=== PATIENT | female | born 1970 | race Caucasian/White ===

== ENCOUNTER 2017-03-30 18:45 | Emergency (ER) | payer BC, MEDICARE ==
--- NOTE | 2017-03-30 19:13 | EDM.PDOC ---
ED HPI GENERAL MEDICAL PROBLEM - General Chief Complaint: Neuro Symptoms/Deficits Stated Complaint: difficulty talking Time Seen by Provider: 03/30/17 18:50 Source of Information: Reports: Patient, Family History Limitations: Reports: Language Barrier (unable to find words, history obtained by family) - History of Present Illness INITIAL COMMENTS - FREE TEXT/NARRATIVE: Patient had an ischemic stroke last Tuesday with cerebral bypass on Saturday March 25, 2017. She was discharged yesterday, Wednesday March 29, 2017. She had similar symptoms to this. She was last seen well at 1300 when she took a nap. Family noticed her speech being worse at 1600 and presented here at approximately 1845. No complaints of weakness. Elevated systolic BP on initial vital check of 161. Onset: Today, Unknown/Unsure Onset Date: 03/30/17 Onset Time: 16:00 (first discovered by family) Severity: Moderate Improves with: Reports: None Worsens with: Reports: None Associated Symptoms: Reports: No Other Symptoms - Related Data Allergies Allergy/AdvReac Type Severity Reaction Status Date / Time Sulfa (Sulfonamide Allergy Rash Verified 08/31/16 17:36 Antibiotics) tramadol Allergy Other Verified 08/31/16 17:36 Home Meds: Home Meds Amitriptyline [Elavil] 10 mg PO BEDTIME 08/31/16 [History] Citalopram [Celexa] 40 mg PO DAILY 08/31/16 [History] Divalproex Sodium [Divalproex Sodium ER] 1,500 mg PO DAILY 08/31/16 [History] Insulin Aspart [NovoLOG] 0 unit SQ ASDIRECTED 08/31/16 [History] LORazepam 1 mg PO Q6H PRN 08/31/16 [History] Liraglutide [Victoza] 1.8 unit SQ DAILY 08/31/16 [History] Losartan/Hydrochlorothiazide [Losartan-HCTZ 100-25 MG] 1 each PO DAILY 08/31/16 [History] amLODIPine Besylate [Amlodipine Besylate] 5 mg PO DAILY 08/31/16 [History] Divalproex Sodium [Divalproex Sodium ER] 2,000 mg PO BEDTIME 09/01/16 [History] Gemfibrozil [Lopid] 600 mg PO BID 09/01/16 [History] Glucagon,Human Recombinant [Glucagon Emergency Kit] 1 mg IJ ASDIRECTED PRN 09/01 [History] Meloxicam [Mobic] 15 mg PO DAILY 09/01/16 [History] Simvastatin [Zocor] 20 mg PO BEDTIME 09/01/16 [History] levETIRAcetam [Keppra] 1,500 mg PO BID 09/01/16 [History] metFORMIN [Glucophage] 1,000 mg PO BID 09/01/16 [History] Hydrochlorothiazide 25 mg PO DAILY tablet 09/03/16 [Rx] Past Medical History HEENT History: Reports: Allergic Rhinitis Cardiovascular History: Reports: High Cholesterol, Hypertension Respiratory History: Reports: Sleep Apnea [employer]OW[employer] WORKER History: Reports: Musculoskeletal History: Reports: Arthritis, Other (See Below) Other Musculoskeletal History: Both knees and hips Neurological History: Reports: Seizure Psychiatric History: Reports: Anxiety, Depression Endocrine/Metabolic History: Reports: Diabetes, Type II - Past Surgical History Female Surgical History: Reports: Hysterectomy Social & Family History - Tobacco Use Smoking Status *Q: Former Smoker Month Tobacco Last Used: 2009 Second Hand Smoke Exposure: No - Caffeine Use Caffeine Use: Reports: None - Recreational Drug Use Recreational Drug Use: No ED ROS GENERAL - Review of Systems Review Of Systems: See Below Constitutional: Reports: No Symptoms HEENT: Reports: No Symptoms Respiratory: Reports: No Symptoms Cardiovascular: Reports: No Symptoms Endocrine: Reports: No Symptoms GI/Abdominal: Reports: No Symptoms : Reports: No Symptoms Musculoskeletal: Reports: No Symptoms Skin: Reports: No Symptoms Neurological: Reports: Trouble Speaking Psychiatric: Reports: No Symptoms Hematologic/Lymphatic: Reports: No Symptoms Immunologic: Reports: No Symptoms ED EXAM, HEAD INJURY - Physical Exam Exam: See Below Exam Limited By: Physical Impairment General Appearance: Alert, WD/WN, Moderate Distress (patient is crying) Head: Normocephalic, Other (left sided post cerbral bypass site, daphney clean, dry, and intact) Eyes: Bilateral Eye: EOMI, PERRL Nose: Normal Inspection Throat/Mouth: Other (slight right sided droop) Neck: Non-Tender Respiratory: No Respiratory Distress, Lungs Clear, Normal Breath Sounds Cardiovascular: Normal Peripheral Pulses, Regular Rate, Rhythm GI/Abdominal Exam (Abbreviated): Normal Bowel Sounds, Soft, Non-Tender Extremities: No Evidence of Injury, Non-Tender, Pedal Edema, Other (slight right sided weakness) Neurologic: Alert, Oriented x 3, Aphasia, Facial Droop, Motor Weakness. No: No Motor/Sensory Deficits (right sided weakness), Normal Mood/Affect (very emotional and crying) Skin: Normal Color - [place] Coma Score Best Eye Response ([place]): (4) Open Spontaneously Best Verbal Response ([place]): (5) Oriented Best Motor Response ([place]): (6) Obeys Commands Course - Orders/Labs/Meds Orders: Active Orders 24 hr Category Date Time Status Head wo Cont [CT] Stat Exams 03/30/17 19:02 Taken Labs: Laboratory Tests 03/30/17 Range/Units 18:57 POC Glucose 75 (74-106) mg/dL - Re-Assessments/Exams Free Text/Narrative Re-Assessment/Exam: 03/30/17 20:51 Report called to [place] [facility] one call and Dr. Dorantes of neurology. Patient to be transferred to Emergency Dept. with stroke symptoms. Head CT obtained and images pushed to [place] [facility]. No acute processes on read by radiology. Attempted to insert IV and to draw labs, but we were unable to obtain IV access. Departure - Departure Time of Disposition: 19:35 Disposition: DC/Tfer to Acute Hospital 02 Condition: Fair Clinical Impression: Stroke - Discharge Information Referrals: Eulalio Campbell MD [Primary Care Provider] - Forms: Interfacility Transfer EMTALA - My Orders Last 24 Hours: My Active Orders 03/30/17 19:02 Head wo Cont [CT] Stat - Assessment/Plan Last 24 Hours: My Active Orders 03/30/17 19:02 Head wo Cont [CT] Stat
== END 2017-03-30 19:35 | disposition short-term general hospital (02) ==
LOC: VM.ED 18:45
DX: I63.9 Cerebral infarction, unspecified (principal); E78.00 Pure hypercholesterolemia, unspecified; I10 Essential (primary) hypertension; Z88.2 Allergy status to sulfonamides; Z88.8 Allergy status to other drugs, medicaments and biological substances; Z79.4 Long term (current) use of insulin; Z79.899 Other long term (current) drug therapy; Z79.84 Long term (current) use of oral hypoglycemic drugs; Z90.710 Acquired absence of both cervix and uterus
CPT/HCPCS: 70450; 82962; 93005; 99285

== ENCOUNTER 2019-03-10 09:12 | Inpatient (IN) | payer BC, MEDICAID ==
[2019-03-10] MEDS ORDERED: Sodium Chloride 0.9% 1,000 ML IV ONE (10:22)
[2019-03-10 10:33] LABS: CHLORIDE,CL 97 mmol/L (98-107); SODIUM,NA 135 mmol/L (136-145)
--- NOTE | 2019-03-10 10:34 | EDM.PDOC ---
ED HPI GENERAL MEDICAL PROBLEM - General Chief Complaint: Abdominal Pain Time Seen by Provider: 03/10/19 09:13 Source of Information: Reports: Retirement Records History Limitations: Reports: Altered Mental Status - History of Present Illness INITIAL COMMENTS - FREE TEXT/NARRATIVE: Pt. presents to ER via EMS. Pt. has profound speech and R sided paralysis secondary to a stroke several years ago. Staff states that she was complaining of R upper quadrant pain. She complained of it last night. She was crying out in pain today so EMS was summoned. She is a code 3/comfort cares patient. She resides in the [facility]. She was really unable to answer any questions due to her profound aphasia. She has been running a low grad fever. She has been not experiencing any vomiting. She did have a large normal bowel movement this AM. Pt. did receive IV dilaudid due to severe pain prehospitally and offered no complaint on arrival to ER. She stated that she was not having any discomfort. Staff states that she will often say she is not in pain when she is due to her aphasia. Onset: Today Onset Date: 03/10/19 Location: Reports: Abdomen - Related Data Allergies Allergy/AdvReac Type Severity Reaction Status Date / Time Sulfa (Sulfonamide Allergy Rash Verified 03/10/19 09:44 Antibiotics) tramadol Allergy Other Verified 03/10/19 09:44 Home Meds: Home Meds Citalopram [Celexa] 10 mg PO DAILY 08/31/16 [History] amLODIPine Besylate [Amlodipine Besylate] 10 mg PO DAILY 08/31/16 [History] metFORMIN [Glucophage] 1,000 mg PO BID 09/01/16 [History] Aspirin 81 mg PO DAILY 04/18/17 [History] Carvedilol [Coreg] 12.5 mg PO BID 04/18/17 [History] DULoxetine [Cymbalta] 60 mg PO DAILY 04/18/17 [History] atorvaSTATin [Lipitor] 80 mg PO BEDTIME 04/18/17 [History] traZODone 50 mg PO BEDTIME 04/18/17 [History] Famotidine [Pepcid] 20 mg PO DAILY #30 tablet 07/13/17 [Rx] Ibuprofen [Motrin] 400 mg PO Q4H PRN #30 tablet 07/13/17 [Rx] Melatonin 3 mg PO BEDTIME #30 tablet 07/13/17 [Rx] ALPRAZolam [Xanax] 0.5 mg PO DAILY 03/10/19 [History] ALPRAZolam [Xanax] 0.5 mg PO ONETIME PRN 03/10/19 [History] ARIPiprazole [Abilify] 1 tab PO DAILY 03/10/19 [History] Acetaminophen [Tylenol] 650 mg PO BID 03/10/19 [History] Acetaminophen [Tylenol] 650 mg PO Q4H PRN 03/10/19 [History] Baclofen 5 mg PO BID 03/10/19 [History] Bisacodyl [Dulcolax] 1 supp RECTAL DAILY PRN 03/10/19 [History] Bisacodyl [Dulcolax] 1 tab PO DAILY PRN 03/10/19 [History] Carbamide Peroxide [Debrox] 5 - 10 drop EARBOTH BID 03/10/19 [History] Dimethicone [Cavilon Durable Barrier] 1 applic TOP BID 03/10/19 [History] Docusate Sodium [Colace] 100 mg PO BID 03/10/19 [History] Lacosamide [Vimpat] 1 tab PO BID 03/10/19 [History] Levothyroxine Sodium [Levo-T] 1 tab PO DAILY 03/10/19 [History] Nystatin 1 applic TOP BID PRN 03/10/19 [History] Valproic Acid [Depakene] 30 ml PO QAM 03/10/19 [History] Valproic Acid [Depakene] 40 ml PO BEDTIME 03/10/19 [History] guaiFENesin/Codeine Phosphate [Guaiatussin AC] 10 ml PO Q4H PRN 03/10/19 [ History] Past Medical History HEENT History: Reports: Allergic Rhinitis Cardiovascular History: Reports: High Cholesterol, Hypertension Respiratory History: Reports: Sleep Apnea Genitourinary History: Reports: Other (See Below) Other Genitourinary History: CKD, proteinuria [employer] T[employer]ER History: Reports: Musculoskeletal History: Reports: Arthritis, Osteoarthritis, Other (See Below) Other Musculoskeletal History: Both knees and hips Neurological History: Reports: CVA, Neuropathy, Peripheral, Seizure Psychiatric History: Reports: Anxiety, Depression, Other (See Below) Other Psychiatric History: insomnia Endocrine/Metabolic History: Reports: Diabetes, Type II, Obesity/BMI 30+ - Past Surgical History Female Surgical History: Reports: Hysterectomy Neurological Surgical History: Reports: Other (See Below) Other Neurological Surgeries/Procedures: craniotomy Social & Family History - Family History Family Medical History: Noncontributory - Caffeine Use Caffeine Use: Reports: None ED ROS GENERAL - Review of Systems Review Of Systems: Unable To Obtain ED EXAM, GENERAL - Physical Exam Exam: See Below Exam Limited By: No Limitations General Appearance: Alert, Other Eye Exam: Bilateral Eye: EOMI, PERRL Head: Atraumatic, Normocephalic Neck: Normal Inspection, Supple, Non-Tender Respiratory/Chest: No Respiratory Distress, Lungs Clear, Normal Breath Sounds, No Accessory Muscle Use, Chest Non-Tender Cardiovascular: Normal Peripheral Pulses, Regular Rate, Rhythm, No Edema, No Gallop, No JVD, No Murmur Peripheral Pulses: 4+: Radial (R) GI/Abdominal: Soft, No Organomegaly, No Distention, Tender (Female) Exam: Deferred Rectal (Female) Exam: Deferred Back Exam: Normal Inspection, Full Range of Motion Extremities: Normal Inspection, Normal Range of Motion, Non-Tender, No Pedal Edema, Normal Capillary Refill Neurological: Alert, Oriented, CN II-XII Intact, Normal Cognition, Normal Gait, Normal Reflexes, No Motor/Sensory Deficits Psychiatric: Normal Affect, Normal Mood Skin Exam: Warm, Dry, Intact, Normal Color, No Rash Lymphatic: No Adenopathy Course - Vital Signs Last Recorded V/S: Last Vital Signs Temp 37.5 C 03/10/19 09:13 Pulse 91 03/10/19 10:20 Resp 16 03/10/19 10:20 BP 116/64 03/10/19 11:45 Pulse Ox 98 03/10/19 11:45 - Orders/Labs/Meds Orders: Active Orders 24 hr Category Date Time Status Oxygen Therapy, ED [RC] ASDIRECTED Care 03/10/19 12:02 Active CULTURE BLOOD [BC] Stat Lab 03/10/19 09:48 Received CULTURE BLOOD [BC] Stat Lab 03/10/19 09:55 Received Blood Culture x2 Reflex Set [OM.PC] Stat Oth 03/10/19 09:28 Ordered Labs: Laboratory Tests 03/10/19 03/10/19 03/10/19 Range/Units 09:45 09:48 09:48 WBC 17.0 H (4.0-10.0) x10^3/uL RBC 4.04 (4.00-5.50) x10^6/uL Hgb 13.0 D (12.0-16.0) g/dL Hct 38.9 (33.0-47.0) % MCV 96.3 H D (78.0-93.0) fL MCH 32.2 H (26.0-32.0) pg MCHC 33.4 (32.0-36.0) g/dL RDW Coeff of Olaf 14.5 (10.0-15.0) % Plt Count 214 D (130-400) x10^3/uL Neut % (Auto) 69.5 (50.0-80.0) % Lymph % (Auto) 14.8 L (25.0-50.0) % [place] % (Auto) 15.4 H (2.0-11.0) % Eos % (Auto) 0.1 (0.0-4.0) % Baso % (Auto) 0.2 (0.2-1.2) % PT 10.3 (10.0-12.8) SEC INR 0.9 L (2.0-3.5) Sodium (136-145) mmol/L Potassium (3.5-5.1) mmol/L Chloride (98-107) mmol/L Carbon Dioxide (21-32) mmol/L Anion Gap (10-20) mmol/L BUN (7-18) mg/dL Creatinine (0.55-1.02) mg/dL Est Cr Clr Drug Dosing Estimated GFR (MDRD) Glucose (74-106) mg/dL Lactic Acid (0.4-2.0) mmol/L Calcium (8.5-10.1) mg/dL Corrected Calcium (8.5-10.1) mg/dL Phosphorus (2.6-4.7) mg/dL Magnesium (1.8-2.4) mg/dL Total Bilirubin (0.2-1.0) mg/dL AST (15-37) U/L ALT (14-59) U/L Alkaline Phosphatase (46-116) U/L C-Reactive Protein (<=0.9) mg/dL Total Protein (6.4-8.2) g/dL Albumin (3.4-5.0) g/dL Globulin Albumin/Globulin Ratio Amylase (25-115) U/L Lipase (73-393) U/L TSH, Ultra Sensitive (0.358-3.74) uIU/mL Urine Color Dark yellow H (YELLOW) Urine Appearance Turbid H (CLEAR) Urine pH 7.5 (5.0-8.0) Ur Specific [place] 1.015 Urine Protein 30 H (NEGATIVE) mg/dL Urine Glucose (UA) Negative (NEGATIVE) mg/dL Urine Ketones Trace H (NEGATIVE) mg/dL Urine Occult Blood Small H (NEGATIVE) Urine Nitrite Negative (NEGATIVE) Urine Bilirubin Negative (NEGATIVE) Urine Urobilinogen 1.0 (0.2) EU/dL Ur Leukocyte Esterase Large H (NEGATIVE) Urine RBC 10-20 H (NOT SEEN) /HPF Urine WBC Packed (NOT SEEN) /HPF Urine WBC Clumps Few Ur Squamous Epith Cells Few H (NEGATIVE) /HPF Urine Bacteria Many H (NEGATIVE) /HPF Urine Mucus Few H (NEGATIVE) /LPF 03/10/19 03/10/19 Range/Units 09:48 09:48 WBC (4.0-10.0) x10^3/uL RBC (4.00-5.50) x10^6/uL Hgb (12.0-16.0) g/dL Hct (33.0-47.0) % MCV (78.0-93.0) fL MCH (26.0-32.0) pg MCHC (32.0-36.0) g/dL RDW Coeff of [place] (10.0-15.0) % Plt Count (130-400) x10^3/uL Neut % (Auto) (50.0-80.0) % Lymph % (Auto) (25.0-50.0) % [place] % (Auto) (2.0-11.0) % Eos % (Auto) (0.0-4.0) % Baso % (Auto) (0.2-1.2) % PT (10.0-12.8) SEC INR (2.0-3.5) Sodium 135 L (136-145) mmol/L Potassium 4.1 (3.5-5.1) mmol/L Chloride 97 L (98-107) mmol/L Carbon Dioxide 30 (21-32) mmol/L Anion Gap 12.1 (10-20) mmol/L BUN 11 (7-18) mg/dL Creatinine 0.7 (0.55-1.02) mg/dL Est Cr Clr Drug Dosing TNP Estimated GFR (MDRD) > 60 Glucose 213 H (74-106) mg/dL Lactic Acid 2.1 H* (0.4-2.0) mmol/L Calcium 9.0 (8.5-10.1) mg/dL Corrected Calcium 10.12 H (8.5-10.1) mg/dL Phosphorus 3.7 (2.6-4.7) mg/dL Magnesium 1.4 L (1.8-2.4) mg/dL Total Bilirubin 0.4 (0.2-1.0) mg/dL AST 7 L (15-37) U/L ALT 9 L (14-59) U/L Alkaline Phosphatase 77 (46-116) U/L C-Reactive Protein 5.8 H (<=0.9) mg/dL Total Protein 6.7 (6.4-8.2) g/dL Albumin 2.6 L (3.4-5.0) g/dL Globulin 4.1 Albumin/Globulin Ratio 0.63 Amylase 28 (25-115) U/L Lipase 295 (73-393) U/L TSH, Ultra Sensitive 2.893 (0.358-3.74) uIU/mL Urine Color (YELLOW) Urine Appearance (CLEAR) Urine pH (5.0-8.0) Ur Specific [place] Urine Protein (NEGATIVE) mg/dL Urine Glucose (UA) (NEGATIVE) mg/dL Urine Ketones (NEGATIVE) mg/dL Urine Occult Blood (NEGATIVE) Urine Nitrite (NEGATIVE) Urine Bilirubin (NEGATIVE) Urine Urobilinogen (0.2) EU/dL Ur Leukocyte Esterase (NEGATIVE) Urine RBC (NOT SEEN) /HPF Urine WBC (NOT SEEN) /HPF Urine WBC Clumps Ur Squamous Epith Cells (NEGATIVE) /HPF Urine Bacteria (NEGATIVE) /HPF Urine Mucus (NEGATIVE) /LPF Meds: Medications Discontinued Medications Generic Name Dose Route Start Last Admin Trade Name Freq PRN Reason Stop Dose Admin Sodium Chloride 1,000 mls @ 1,000 mls/hr 03/10/19 10:22 03/10/19 10:36 Normal Saline IV 03/10/19 11:21 1,000 mls/hr .BOLUS ONE Administration Piperacillin Sod/Tazobactam 100 mls @ 200 mls/hr 03/10/19 10:41 03/10/19 11: 15 Sod 3.375 gm/ Sodium Chloride IV 03/10/19 11:10 200 mls/hr STAT ONE Administration Iopamidol 100 ml 03/10/19 10:54 03/10/19 11:08 Isovue-300 (61%) IVPUSH 03/10/19 10:55 100 ml ONETIME ONE Administration - Re-Assessments/Exams Free Text/Narrative Re-Assessment/Exam: 03/10/19 12:09 CT abdomen and pelvis obtained. Steatosis of liver noted. Gallbladder distention without evidence of cholecysitis/cholelithiasis. Non-specific fat stranding of RUQ Departure - Departure Time of Disposition: 12:10 Disposition: DC/Tfer to Acute Hospital 02 Clinical Impression: UTI (urinary tract infection) - Discharge Information - Problem List Review Problem List Initiated/Reviewed/Updated: Yes - My Orders Last 24 Hours: My Active Orders 03/10/19 09:28 Blood Culture x2 Reflex Set [OM.PC] Stat 03/10/19 09:48 CULTURE BLOOD [BC] Stat 03/10/19 09:55 CULTURE BLOOD [BC] Stat 03/10/19 12:02 Oxygen Therapy, ED [RC] ASDIRECTED - Assessment/Plan Last 24 Hours: My Active Orders 03/10/19 09:28 Blood Culture x2 Reflex Set [OM.PC] Stat 03/10/19 09:48 CULTURE BLOOD [BC] Stat 03/10/19 09:55 CULTURE BLOOD [BC] Stat 03/10/19 12:02 Oxygen Therapy, ED [RC] ASDIRECTED Plan: Pt. will be admitted to med surg acutely. She is a code 3. She was started on IV zosyn 3.375gm IV. There is no obvious evidence of surgical pathology noted. Dr. Kaplan will admit this patient acutely. Discussed findings with patient who indicated to the affirmative that she understood. Unable to assess her due to her aphasia. All questions were answered.
[2019-03-10 10:35] LABS: ANION GAP 12.1 mmol/L (10-20)
[2019-03-10] MEDS ORDERED: Piperacillin/Tazobactam 3.375 GM in Sodium Chloride 0.9% 100 ML IV ONE (10:41)
[2019-03-10] MEDS ORDERED: Iopamidol 612 MG/ML 100 ML Bottle IVPUSH ONE (10:54)
--- NOTE | 2019-03-10 11:45 | CT ---
[id number] CT/CT Abdomen Pelvis W IV EXAM: CT Abdomen Pelvis W IV CLINICAL DATA: RIGHT-SIDED ABDOMINAL PAIN, FEVER. COMPARISON STUDY: August 2016. FINDINGS: Multiple bilateral nonobstructing renal calculi measuring up to 5 mm in diameter. Ureters and urinary bladder are unremarkable. Liver demonstrates slightly decreased parenchymal attenuation. Correlate with LFTs, as findings can be seen with steatosis. Gallbladder is mildly distended but otherwise unremarkable. Common bile duct is normal in caliber. Mild amount of fat stranding in the right upper quadrant extending from the perihepatic region into the paracolic gutter. Medially, this is adjacent to the 2nd portion of the duodenum. Etiology is nonspecific, as there is no obvious evidence of adjacent inflammatory process. No evidence of bowel obstruction or inflammation. No colitis or diverticulitis. No pneumoperitoneum or pneumatosis. No free fluid or fluid collections. Appendix is normal. No lymphadenopathy in the abdomen or pelvis. Mild amount of dependent atelectasis in both lung bases. Scattered changes of spondylosis throughout the spine. No fracture or osseous lesion. IMPRESSION: Possible changes of hepatic steatosis. Correlate with LFTs. Mildly distended gallbladder without radiographic evidence of acute cholecystitis or cholelithiasis. Nonspecific fat stranding in the right upper quadrant without drainable fluid collection or other associated findings. Ryan Patrick MD 03/10/19 1144 Thank you for allowing us to participate in the care of your patient.
[2019-03-10] MEDS ORDERED: HYDROmorphone 1 MG/ML Syringe IVPUSH PRN (12:36)
[2019-03-10] MEDS ORDERED: Ondansetron 4 MG/2 ML SDV IV PRN (13:31)
[2019-03-10] MEDS ORDERED: Acetaminophen 325 MG Tab PO PRN ×2 (13:31→13:39)
[2019-03-10] MEDS ORDERED: Bisacodyl 5 MG Tab PO PRN (13:39)
[2019-03-10] MEDS ORDERED: ALPRAZolam 0.5 MG Tab PO PRN (13:39)
[2019-03-10] MEDS ORDERED: Carbamide Peroxide 6.5% Otic Soln 15 ML Bottle EARBOTH PRN (13:39)
[2019-03-10] MEDS ORDERED: Bisacodyl 10 MG Supp RECTAL PRN (13:39)
[2019-03-10] MEDS ORDERED: Miconazole 2% Top Powder 45 GM Container TOP PRN (14:00)
[2019-03-10] MEDS ORDERED: Magnesium Sulfate/Water 2 GM in Premix Bag 1 BAG IV ONE (14:12)
[2019-03-10] MEDS ORDERED: guaiFENesin 100 MG/5 ML Soln 10 ML UD Cup PO PRN (14:45)
[2019-03-10] MEDS: Enoxaparin 40 MG/0.4 ML Syringe SUBCUT SCH (15:02)
[2019-03-10] MEDS: Pantoprazole 40 MG Vial IVPUSH SCH (15:02)
[2019-03-10] MEDS: Magnesium Oxide 400 MG Tab PO SCH (15:04)
[2019-03-10] MEDS: ALPRAZolam 0.5 MG Tab PO SCH (15:05)
[2019-03-10] MEDS: Sodium Chloride 0.9% 1,000 ML IV SCH ×2 (15:14→20:07)
--- NOTE | 2019-03-10 15:14 | HP ---
CHIEF COMPLAINT: Febrile with abdominal pain. HISTORY OF PRESENT ILLNESS: The patient is a 48-year-old female who is a resident of [facility] whom I had gotten a call about having severe abdominal pain this morning that was worse than her normal presentation. She does have a history of stroke and she is dysphasic and not able to tell exactly what is going on. She did have a large bowel movement during the night, which is normal for her, but since then has been much more uncomfortable. She was seen in the emergency room by Gigi Hickman, found to have a bladder infection present as well as a CT scan was done which showed hepatic steatosis, but no gallstones. No biliary sludge. No evidence of acute cholecystitis. No evidence of diverticulitis. There is some nonspecific fat stranding in the right upper quadrant without drainable fluid. There were also kidney stones that were noted that were nonobstructing bilaterally. The patient had received Dilaudid on her ambulance transfer to the emergency room and she had been given 1 dose of Zosyn in the emergency room as well as some IV fluids. At the shelter, her code level status was to keep comfortable, but family did want her assessed over in the emergency room for this and do want her treated for infection, so therefore she is no longer on just comfort cares only. The patient is not able to contribute to the history of her problems due to her dysphasia. MEDICATIONS: She is currently on Xanax 0.5 mg 1 pill daily, Debrox 10 drops 5 to 10 drops b.i.d. p.r.n. ear wax accumulation, amlodipine 10 mg 1 pill a day, Celexa 10 mg 1 pill daily, Colace 100 mg 1 pill twice a day, Tylenol 325 two pills twice a day for pain, melatonin 3 mg one at bedtime related to insomnia, Cavilon barrier cream 1.3% apply b.i.d. to skin, Guaifenicen with codine syrup 10 mL every 4 hours p.r.n. cough, Nystatin powder b.i.d. p.r.n. rash, Xanax 0.5 mg give 30 minutes prior to dental appointments, valproic acid 250 mg/5 mL, she gets 30 mL 1 time a day for seizures in the morning and 40 mL at bedtime, valproic acid 250/5 mL, she gets 40 mL 1 time a day at bedtime and 30 mL at 10 a.m., baclofen 5 mg b.i.d., Vimpat tablets 100 mg 1 pill twice a day, Abilify 10 mg 1 pill daily, levothyroxine 25 mcg 1 pill daily, Bisacodyl 10 mg rectal every 24 hours as needed for constipation, Bisacodyl 5 mg p.o. p.r.n. constipation, Pepcid 20 mg 1 pill daily for reflux, trazodone 50 mg 1 pill at bedtime, Lipitor 80 mg 1 pill daily, metformin 1000 mg b.i.d., Coreg 12.5 mg 1 pill twice a day, aspirin 81 mg 1 pill daily, Cymbalta 60 mg 1 pill daily, ibuprofen 400 mg every 4 hours as needed for pain, Tylenol 650 q.4 hours p.r.n. pain. ALLERGIES: The patient is allergic to tramadol and sulfa. PAST MEDICAL HISTORY: The patient had a significant embolic CVA in 03/2017, which required emergency surgery for thrombectomy of her left frontoparietal temporal craniotomy with a left EC-IC internal carotid bypass due to hypoperfusion. The patient has been subsequently hemiparetic since then. She has had seizures which have been simple partial seizures. She has had type 2 diabetes mellitus on insulin. She used to have an insulin pump, but no longer has it. She has a history of a seizure disorder. She has had hypertension. She had acute renal failure in 2006. She also had hypercholesterolemia. She has had chronic depression as well as anxiety disorder followed by Psychiatry. The patient has had obstructive sleep apnea, but is not using a CPAP machine. She has had excessive sedation with Ativan. She has persistent insomnia, peripheral neuropathy, osteoarthritis, chronic kidney disease stage 3, obesity, she has had 1 child. PAST SURGICAL HISTORY: Brain surgery in 2017 for embolic stroke. She has had a hysterectomy and right oophorectomy. FAMILY MEDICAL HISTORY: Mother has had polymyositis. Father has hypertension, coronary artery disease. SOCIAL HISTORY: The patient is single. She has been a resident of [facility] since 2016. She has 1 son. She used to work at the [employer] and the assisted prior to that. The patient has Dr. Esther Hackett as her primary care provider. REVIEW OF SYSTEMS: The patient is hemiparetic on her right side, so is in a wheelchair. She needs assistance with feeding. She does have a difficult time speaking. She does have problems with anxiety. Otherwise not able to be obtained from the patient. PHYSICAL EXAMINATION: Vital Signs: Her temperature I believe it was 104 in the emergency room. Her blood pressure is 116/64, pulse 81, sats are 98% on 2 L. Her weight is 107 kg. General: The patient has rigors and chills. The patient has very limited speech. Skin: [place], warm, and dry. HEENT: Mucous membranes are noted to be dry. Pupils equal and reactive to light. Conjunctivae are clear. There is no icterus noted. Neck: No anterior cervical lymphadenopathy. No thyromegaly. Heart: Regular rate and rhythm. Lungs: Clear to auscultation. Abdomen: Bowel sounds are present. It is obese. It is soft. She is tender in the epigastric area. No guarding. No rebound. Neurologic: The patient is hemiparetic on her right side. No skin lesions or ulcers. DIAGNOSTIC DATA: Her CT scan of her abdomen and pelvis shows possible hepatic steatosis with mildly distended gallbladder and some fat stranding in the right upper quadrant. Kidney stones are noted to be nonobstructing bilaterally. Laboratory data shows that her white blood cell count is elevated at 17.0, hemoglobin 13.0, platelets 214 with 69 segs, 14 lymphocytes. INR is 0.9. Sodium 135, potassium 4.1, creatinine 0.7, GFR greater than 60, BUN 11, glucose 213, lactic acid 2.1, calcium 9.0, corrected 10.12. Phosphorus 3.7, magnesium 1.4. Her total bilirubin 0.4, AST 7, ALT 9, alkaline phosphatase 77, CRP 5.8, albumin 2.6, amylase 28, lipase 295 which is within normal range up to 393. Her TSH is 2.83. Urinalysis came back dark, turbid. Specific gravity 1.015, protein 30 with 10 to 20 red blood cells, packed white blood cells, few epithelial cells, many bacteria. IMPRESSION: 1. Systemic inflammatory response syndrome. 2. Urinary tract infection. 3. Abdominal pain, right upper quadrant with fat stranding noted on CT. 4. Cerebrovascular disease with residual right hemiparesis of her dominant side. 5. Type 2 diabetes mellitus. 6. Hypomagnesemia. 7. Gastroesophageal reflux disease. 8. Hypertension. 9. Chronic kidney disease. 10.Anxiety disorder. 11.History of depression. 12.Hypercholesterolemia.. PLAN: The patient will be admitted to Acute Care. I did talk with family about changing her code level status to a do not resuscitate, do not intubate, but we will treat infection. We will give IV hydration. We will continue her on the Zosyn. We will need to give her magnesium replacement as well. We will place her on a sliding scale and with her Accu-Cheks. If the patient would become hypotensive or tachycardic, she may need referral to a higher level of care hospital. She will be admitted to Dr. Esther Hackett's service. GM03/10/2019 14:12:33 MODL: 03/10/2019 15:08:52 /[id number] DERICK
[2019-03-10] MEDS: Insulin Lispro 100 Unit/ML 3 ML KwikPen SUBCUT SCH (17:59)
--- NOTE | 2019-03-10 18:05 | CR ---
[id number] RAD/RAD Chest PA or AP 1V EXAM: RAD Chest PA or AP 1V INDICATION: FEBRILE. COMPARISON: None. DISCUSSION: Cardiomediastinal silhouette is normal in size and contour. No infiltrate, effusion, pneumothorax, or edema. IMPRESSION: Negative examination of the chest. Ryan Patrick MD 03/10/19 [id number] Thank you for allowing us to participate in the care of your patient.
[2019-03-10] MEDS: Piperacillin/Tazobactam 3.375 GM in Sodium Chloride 0.9% 100 ML IV SCH (18:41)
[2019-03-10] MEDS ORDERED: Melatonin 3 MG Tab PO SCH (20:00)
[2019-03-10] MEDS ORDERED: atorvaSTATin 40 MG Tab PO SCH (20:00)
[2019-03-10] MEDS ORDERED: traZODone 50 MG Tab PO SCH (20:00)
[2019-03-10] MEDS ORDERED: DIMETHICONE TOP SCH (20:00)
[2019-03-10] MEDS: Baclofen 10 MG Tab PO SCH (20:13)
[2019-03-10] MEDS: metFORMIN 500 MG Tab PO SCH (20:13)
[2019-03-10] MEDS: Carvedilol 12.5 MG Tab PO SCH (20:14)
[2019-03-10] MEDS: Acetaminophen 325 MG Tab PO SCH (20:14)
[2019-03-10] MEDS: Valproic Acid 250 MG/5 ML Soln 5 ML UD Cup PO SCH (20:21)
[2019-03-10] MEDS: Lacosamide 50 MG Tab PO SCH (20:21)
[2019-03-10] MEDS: Docusate Sodium 100 MG Cap PO SCH (20:22)
[2019-03-10] MEDS: HYDROmorphone 1 MG/ML Syringe IVPUSH PRN (22:45)
[2019-03-11] MEDS: HYDROmorphone 1 MG/ML Syringe IVPUSH PRN ×3 (03:19→12:11)
[2019-03-11] MEDS: Pantoprazole 40 MG Vial IVPUSH SCH (03:19)
[2019-03-11] MEDS: Piperacillin/Tazobactam 3.375 GM in Sodium Chloride 0.9% 100 ML IV SCH ×2 (03:21→11:00)
[2019-03-11] MEDS: Sodium Chloride 0.9% 1,000 ML IV SCH ×2 (03:54→11:05)
[2019-03-11] MEDS ORDERED: Levothyroxine 25 MCG Tab PO SCH (07:00)
[2019-03-11] MEDS: Valproic Acid 250 MG/5 ML Soln 5 ML UD Cup PO SCH (07:54)
[2019-03-11] MEDS ORDERED: Citalopram 10 MG Tab PO SCH (08:00)
[2019-03-11] MEDS ORDERED: Valproic Acid 250 MG/5 ML Soln 5 ML UD Cup PO SCH (08:00)
[2019-03-11] MEDS ORDERED: amLODIPine 10 MG Tab PO SCH (08:00)
[2019-03-11] MEDS: Enoxaparin 40 MG/0.4 ML Syringe SUBCUT SCH (08:00)
[2019-03-11] MEDS ORDERED: DULoxetine 60 MG Cap PO SCH (08:00)
[2019-03-11] MEDS ORDERED: ARIPiprazole 5 MG Tab PO SCH (08:00)
[2019-03-11] MEDS: metFORMIN 500 MG Tab PO SCH (08:40)
[2019-03-11 08:46] LABS: CHLORIDE,CL 104 mmol/L (98-107); SODIUM,NA 140 mmol/L (136-145)
--- NOTE | 2019-03-11 09:00 | PN ---
Progress Note for JOSÉ MIGUEL JESUS Date: 03/11/2019 Room #: VM.215 SUBJECTIVE: This is the patient's second hospital day, being admitted with severe abdominal pain with fever. The patient still continued to have episodes of pain, which was not controlled by her original Dilaudid dose, so the dose was increased. She did become slightly hypotensive during the day and required a IV fluid bolus, which she did respond to. The patient since then has been resting between her spells of pain. She did have another temperature spike last evening up to 38.4. The patient this morning does seem to indicate she still does have soreness in the right upper quadrant. OBJECTIVE: Vital Signs: Her temperature is 38.3, blood pressure was 140/85, respiratory rate is 14, sats are 92% with 2 L of oxygen. General: The patient appears slightly flushed. Heart: Regular rate. Lungs: Clear to auscultation. Abdomen: Bowel sounds are present. She does have tenderness in the right upper quadrant. No guarding. No rebound tenderness. LABORATORY DATA: Her lab is pending yet today. IMPRESSION: 1. Systemic inflammatory response syndrome. 2. Right upper quadrant pain. 3. Urinary tract infection. 4. Hemiplegia secondary to stroke. 5. Type 2 diabetes mellitus. 6. Hypomagnesemia. 7. Chronic anxiety disorder. 8. Hypertension. PLAN: We will await her lab work today. If improving, we will continue on same course. If not improving, we will confer with [facility]. Family would be interested in transferring her to try higher level of care if that is needed. The patient may need consideration for repeat imaging. We will increase her IV fluid rate to see if this helps with her fever and also check an amylase as well. For her diet, right now she is on regular diet, however, may need to consider placing her on clear liquids and nothing has grown yet on her blood cultures as reported. A chest x-ray had been done last evening because of concerns with fever and it was read as being negative for pneumonia. Also, she had an EKG done yesterday, which seemed to be similar to her previous one. She did have a troponin level checked just to make certain there were no concerns of cardiac problems and her troponin was normal at 0.025. GM03/11/2019 07:31:26 MODL: 03/11/2019 08:50:46 /[id number] MTDD
[2019-03-11] MEDS: Baclofen 10 MG Tab PO SCH (09:37)
[2019-03-11] MEDS: ALPRAZolam 0.5 MG Tab PO SCH (09:37)
[2019-03-11] MEDS: Docusate Sodium 100 MG Cap PO SCH (09:37)
[2019-03-11] MEDS: Magnesium Oxide 400 MG Tab PO SCH (09:37)
[2019-03-11] MEDS: Carvedilol 12.5 MG Tab PO SCH (09:38)
[2019-03-11] MEDS: Acetaminophen 325 MG Tab PO SCH (09:38)
[2019-03-11] MEDS: Insulin Lispro 100 Unit/ML 3 ML KwikPen SUBCUT SCH ×2 (09:43→12:14)
[2019-03-11 10:05] VITALS: BP 104/63
[2019-03-11] MEDS: Lacosamide 50 MG Tab PO SCH (10:42)
[2019-03-11] MEDS ORDERED: LACOSAMIDE 100 MG PO SCH (10:45)
[2019-03-11] MEDS ORDERED: HYDROmorphone 1 MG/ML Syringe IVPUSH PRN (11:07)
--- NOTE | 2019-03-11 11:07 | PCM.SN ---
- Free Text/Narrative Note: Pt continues to have severe RUQ pain with low grade fever. Family present and agrees to transfer. Spoke with Dr Stone and he agreed to accept pt at [facility] for further workup and treatment. .
--- NOTE | 2019-03-11 12:51 | DISCH ---
PRIMARY DIAGNOSIS: Systemic inflammatory response syndrome. SECONDARY DIAGNOSES: 1. Severe right upper quadrant pain, unclear etiology. 2. Urinary tract infection. 3. Hyponatremia. 4. Type 2 diabetes mellitus. 5. Hypertension with hypotensive episode. 6. Hemiparesis secondary to previous cerebrovascular accident. 7. 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 8. Chronic anxiety disorder. 9. Chronic depression. 10.Obstructive sleep apnea. SUMMARY OF HISTORY AND PHYSICAL: The patient is a 48-year-old female who presented to the emergency room on 03/10/2019 with having severe right upper quadrant pain. It had begun the evening before. She was crying out, much unusual for her. The patient does have a difficulty communicating because of her stroke. She had been code level 3 with comfort cares only, however, family wanted her transferred to be further investigated. At the emergency room, she was unable to answer questions about her problems herself. She had been running a low-grade fever, had not been vomiting. She had normal large bowel movement earlier prior to presentation. She did receive Dilaudid by ambulance on transfer, which had helped with her pain. When she arrived, it was noted on physical exam at presentation, her temperature was 37.5, pulse was 91, blood pressure is 116/64, sats were 98. Her white blood cell count was 17.0, hemoglobin 13.0, platelets 214, with 69 neutrophils, 14 lymphocytes. Her urine was dark, turbid, 1.015 specific gravity, she had negative nitrites, positive leukocyte esterase, she had 10 to 20 red blood cells, she had packed white blood cells, clumps of white blood cells, many bacteria. Her lactic acid was 2.1, magnesium 1.4, phosphorus 3.4, calcium 9.0, total bilirubin 0.4, AST 7, ALT 9, alkaline phosphatase 77, CRP 5.8, albumin 2.6, amylase 28, lipase 295, TSH 2.89. The patient underwent a CT scan of her abdomen and pelvis with contrast which showed possible hepatic steatosis, correlate with LFTs, mildly distended gallbladder without radiographic evidence of acute cholecystitis or cholelithiasis. She had nonspecific fat stranding in the right upper quadrant without drainable fluid collection. She was noted to have multiple bilateral nonobstructing kidney stones up to 5 mm in diameter. Ureters and urinary bladder were unremarkable. Common bile duct was normal. Colon had no colitis or diverticulitis noted. No pneumoperitoneum. No pneumatosis. Appendix appeared normal. No lymphadenopathy. The patient had received normal saline in the emergency room and started on piperacillin 3.375 g. SUMMARY OF HOSPITAL COURSE: The patient had recurrence of severe upper abdominal pain which Dilaudid was increased from 0.5 to 1 mg to help with pain control. She did have an EKG done which did show sinus tachycardia with rates up to 123, anteroseptal infarct, inferior infarct. The troponin was checked at that time and came back normal at 0.025. Repeat lactic acid done 3 hours after admission or 4 hours came back at 1.9. To note, the patient started to become more tachycardic. She was not eating well. She was placed on sliding scale insulin. She was placed on Lovenox for DVT prophylaxis. She did have a temperature that went up to 38.3 on the evening of admission and she was continued on same antibiotics. She did have a hypotensive episode at around 1800, which she did respond to IV fluids. Her pulses stayed up around the 110s. She also did have a chest x-ray done to rule out pneumonia and that was also negative as well. By the next morning, she was having severe pain, still having problems with fever of 38.3. On physical exam, she had bowel sounds, but she was very tender in her right upper quadrant with some questionably guarding, but no rebound noted. Heart, regular rate. Lungs were clear. No CVA tenderness appreciated. Her laboratory data had improved that showed her white blood cell count now is down to 10.8 from 17, hemoglobin had dropped to 11.6, platelet count was 178, segs were 77 with 7 bands, 6 lymphocytes with some abnormal morphology. Her sodium was 140, potassium 4.0, creatinine was 0.9. GFR was greater than 60. Her glucose was 213. Her lactic acid was down to 1.6, calcium 8.1, magnesium was up to 2.0. AST was normal, but increased at 14. ALT normal at 15, alkaline phosphatase normal at 105. CRP had gone up significantly to 26.5, albumin was 2.2. Lipase was rechecked, was 38. The patient had also been started on Protonix IV for stomach protection in case there may have been peptic ulcer disease going on. Because of concern with severe pain that was very difficult to control, once the Dilaudid wore off with persistent fever, she was still tachycardic, that I felt she needed a higher level of care. She may need imaging such as ultrasound or MRI that is not available here. She may need GI consult. She may need surgical consult. To note, family did agree to have her transferred and would like additional workup if needed. The patient's mother was present the morning of exam to visit with us. The patient is currently on normal saline of 150 mL/h, her IV piperacillin, does have nasal cannula in. A Sandoval catheter was placed at the time of transfer for convenience for patient and also for more accurate Is and Os. She was on sliding scale insulin. MEDICATIONS: At the time of transfer are Celexa 10 mg 1 pill daily, amlodipine 10 mg daily, metformin 1000 mg b.i.d. (that probably should be held), trazodone 50 mg 1 pill at bedtime, Lipitor 80 mg at bedtime. Her aspirin 81 mg daily is held. Cymbalta 60 mg daily, carvedilol 12.5 mg b.i.d., ibuprofen 200 mg 2 pills q.4 hours was held at time of transfer, Pepcid 20 mg 1 pill daily was held at the time of transfer, melatonin 3 mg at bedtime, Dulcolax 5 mg 1 pill daily p.r.n., Dulcolax 10 mg suppository daily p.r.n., levothyroxine 25 mcg 1 pill daily, Vimpat 100 mg 1 pill twice a day, Abilify 10 mg 1 pill daily, valproic acid 250 mg/5 mL takes 5 mL at bedtime, baclofen 5 mg 1 p.o. b.i.d., valproic acid 200 mg/5 mL takes 30 mL in the morning, Nystatin powder b.i.d. p.r.n., alprazolam 0.5 mg 1 time p.r.n. prior to dental procedures, guaifenesin with codeine cough syrup p.r.n., dimethicone barrier cream b.i.d., docusate 100 mg 1 p.o. b.i.d., Debrox 5 to 10 ear drops b.i.d. p.r.n. earwax, Tylenol 325 two q.4 hours p.r.n. and she takes 2 b.i.d. scheduled, alprazolam 0.5 mg daily, and she is on Lovenox 40 mg subcu daily. Dilaudid, she gets 0.5 to 1 mg q.4 hours p.r.n. She has been on a sliding scale insulin while hospitalized low dose and then magnesium oxide 400 mg 1 pill daily which is a new medication, Zofran 4 mg IV q.4 hours p.r.n., Protonix 40 mg IV q.12 hours, new med, and Zosyn 3.375 g q.8 hours. ASSESSMENT/PLAN: The patient's code level status at the time of transfer is do not resuscitate, do not intubate. She will go by ambulance transfer with ALS due to IV fluids, IV antibiotics, need for pain control, need for oxygen. Her pain prevents her from sitting up. I did contact Dr. Stone at [facility] at 11:05 and he did accept the patient to go to [facility] in [place]. GM03/11/2019 11:37:21 MODL: 03/11/2019 12:40:28 /[id number] MTDD
== END 2019-03-11 13:05 | disposition short-term general hospital (02) | DRG 872 ==
LOC: VM.ED 09:12 → VM.MS 12:04
PROVIDERS: ADMIT Family Medicine; ATTEND Internal Medicine
DX: A41.9 Sepsis, unspecified organism (principal); N39.0 Urinary tract infection, site not specified; I69.951 Hemiplegia and hemiparesis following unspecified cerebrovascular disease affecting right dominant side; E87.1 Hypo-osmolality and hyponatremia; I12.9 Hypertensive chronic kidney disease with stage 1 through stage 4 chronic kidney disease, or unspecified chronic kidney disease; N18.9 Chronic kidney disease, unspecified; E78.00 Pure hypercholesterolemia, unspecified; M19.90 Unspecified osteoarthritis, unspecified site; N18.3 Chronic kidney disease, stage 3 (moderate); E66.9 Obesity, unspecified; G47.33 Obstructive sleep apnea (adult) (pediatric); G47.00 Insomnia, unspecified; E11.22 Type 2 diabetes mellitus with diabetic chronic kidney disease; M19.91 Primary osteoarthritis, unspecified site; I69.922 Dysarthria following unspecified cerebrovascular disease; E83.42 Hypomagnesemia; K21.9 Gastro-esophageal reflux disease without esophagitis; Z66 Do not resuscitate; F32.9 Major depressive disorder, single episode, unspecified; Z88.5 Allergy status to narcotic agent; Z79.4 Long term (current) use of insulin; Z90.89 Acquired absence of other organs; Z88.1 Allergy status to other antibiotic agents; F41.9 Anxiety disorder, unspecified; Z68.38 Body mass index [BMI] 38.0-38.9, adult; E11.42 Type 2 diabetes mellitus with diabetic polyneuropathy; I69.320 Aphasia following cerebral infarction; I69.351 Hemiplegia and hemiparesis following cerebral infarction affecting right dominant side; Z88.6 Allergy status to analgesic agent; Z88.2 Allergy status to sulfonamides; Z79.84 Long term (current) use of oral hypoglycemic drugs; Z79.82 Long term (current) use of aspirin; Z79.899 Other long term (current) drug therapy
CPT/HCPCS: 36415; 74177; 80053; 81001; 82150; 83605; 83690; 83735; 84100; 84443; 85025; 85610; 86140; 87040 ×2; 87086; 87088 ×2; 87186 ×2; 96361; 96365; 99285; J2543; J7030; J7050; Q9967; 51702; 71045; 82962; 84484; 93005; 94760; A4217; A9270-GY; C9113; J1170; J1650; J1815-GY; J3475

== ENCOUNTER 2020-11-27 15:16 | Emergency (ER) | payer MEDICARE, MEDICAID ==
[2020-11-27] MEDS ORDERED: Sodium Chloride 0.9% 10 ML Syringe FLUSH PRN (15:24)
--- NOTE | 2020-11-27 16:01 | EDM.PDOC ---
ED HPI GENERAL MEDICAL PROBLEM - General Stated Complaint: ER VISIT Time Seen by Provider: 11/27/20 15:16 Source of Information: Reports: Patient History Limitations: Reports: No Limitations - History of Present Illness INITIAL COMMENTS - FREE TEXT/NARRATIVE: Pt. presents to ER after experiencing several episodes of unresponsiveness over the past 24 hours. Pt. 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 She is currently on depakote 1000mg BID and vimpat 100mg twice daily. Staff states that the episodes have lasted approx. 3 min. She reportedly had 2 episodes yesterday and has had a total of 2-3 episodes today. Staff states that the patient becomes unresponsive, staring and not interacting with staff which she normally does. Slowly she will become more responsive. EMS was called to transfer the patient to the ER. Pt. neuro exam has otherwise been unchanged, with the exception of these unresponsive episodes. There was not tonic clonic movement. She is now moving her extremities at her baseline level, according to nursing staff. Staff states that she has not recently fallen, experienced any trauma, no chest pain, shortness of breath, cough, fever, or congestion. She has had her covid vaccine. She is able to indicated to the affirmative or negative regarding information on her ROS. Onset: Today Onset Date: 11/27/20 Location: Reports: Other (See HPI) Right Shoulder Pain Score (Numeric/FACES): 5 - Related Data Allergies Allergy/AdvReac Type Severity Reaction Status Date / Time Sulfa (Sulfonamide Allergy Rash Verified 11/27/20 16:02 Antibiotics) tramadol Allergy Other Verified 11/27/20 16:02 Home Meds: Home Meds Citalopram [Celexa] 20 mg PO DAILY 08/31/16 [History] amLODIPine Besylate [Amlodipine Besylate] 10 mg PO DAILY 08/31/16 [History] metFORMIN [Glucophage] 1,000 mg PO BID 09/01/16 [History] DULoxetine [Cymbalta] 60 mg PO DAILY 04/18/17 [History] atorvaSTATin [Lipitor] 80 mg PO BEDTIME 04/18/17 [History] carvediloL [Coreg] 12.5 mg PO BID 04/18/17 [History] traZODone 50 mg PO BEDTIME 04/18/17 [History] ALPRAZolam [Xanax] 0.5 mg PO DAILY 03/10/19 [History] ARIPiprazole [Abilify] 15 mg PO DAILY 03/10/19 [History] Acetaminophen [Tylenol] 650 mg PO QID 03/10/19 [History] Baclofen 5 mg PO BID 03/10/19 [History] Lacosamide [Vimpat] 1 tab PO BID 03/10/19 [History] Levothyroxine Sodium [Levo-T] 1 tab PO DAILY 03/10/19 [History] Nystatin 1 applic TOP BID PRN 03/10/19 [History] bisacodyL [Dulcolax] 1 tab PO DAILY PRN 03/10/19 [History] Acetaminophen [Tylenol] 650 mg PO Q4H PRN tablet 03/11/19 [Rx] Aspirin 81 mg PO DAILY 11/27/20 [History] Divalproex Sodium [Depakote ER] 1,000 mg PO BID 11/27/20 [History] Exenatide Microspheres [Bydureon Pen] 2 mg SQ Q7D 11/27/20 [History] Famotidine 20 mg PO DAILY 11/27/20 [History] Insulin Detemir [Levemir] 12 unit SUBCUT DAILY 11/27/20 [History] Loperamide HCl [Imodium A-D] 2 mg PO ASDIRECTED PRN 11/27/20 [History] Mag Hydrox/Aluminum Hyd/Simeth [Mylanta Maximum Strength Liq] 30 ml PO Q6H PRN 11/27/20 [History] Naproxen Sodium [Naprelan] 375 mg PO BID PRN 11/27/20 [History] Sennosides/Docusate Sodium [Senna Plus 8.6-50 mg Tablet] 1 each PO BID 11/27/20 [History] lisinopriL [Lisinopril] 5 mg PO DAILY 11/27/20 [History] Past Medical History HEENT History: Reports: Allergic Rhinitis, Other (See Below) Other HEENT History: cva, epilepsy, dyspepsia, right side hemiplegia and hemiparesis, Cardiovascular History: Reports: High Cholesterol, Hypertension Respiratory History: Reports: Sleep Apnea Genitourinary History: Reports: Other (See Below) Other Genitourinary History: CKD, proteinuria [employer] History: Reports: Musculoskeletal History: Reports: Arthritis, Osteoarthritis, Other (See Below) Other Musculoskeletal History: Both knees and hips Neurological History: Reports: CVA, Neuropathy, Peripheral, Seizure Psychiatric History: Reports: Anxiety, Depression, Other (See Below) Other Psychiatric History: insomnia Endocrine/Metabolic History: Reports: Diabetes, Type II, Obesity/BMI 30+ - Past Surgical History Female Surgical History: Reports: Hysterectomy Neurological Surgical History: Reports: Other (See Below) Other Neurological Surgeries/Procedures: craniotomy Social & Family History - Family History Family Medical History: No Pertinent Family History - Caffeine Use Caffeine Use: Reports: None ED ROS GENERAL - Review of Systems Review Of Systems: See Below Constitutional: Reports: No Symptoms Respiratory: Reports: No Symptoms Cardiovascular: Reports: No Symptoms Endocrine: Reports: No Symptoms GI/Abdominal: Reports: No Symptoms : Reports: No Symptoms Musculoskeletal: Reports: No Symptoms Skin: Reports: No Symptoms Neurological: Reports: Trouble Speaking, Difficulty Walking, Other (R sided hemiparesis. Movement in R arm and foot, unable to lift off bed.) Psychiatric: Reports: No Symptoms Hematologic/Lymphatic: Reports: No Symptoms Immunologic: Reports: No Symptoms ED EXAM, GENERAL - Physical Exam Exam: See Below Exam Limited By: No Limitations General Appearance: Alert, WD/WN, No Apparent Distress Eye Exam: Bilateral Eye: Normal Fundi, PERRL Head: Atraumatic, Normocephalic Respiratory/Chest: No Respiratory Distress, Lungs Clear, Normal Breath Sounds, No Accessory Muscle Use, Chest Non-Tender Cardiovascular: Normal Peripheral Pulses, Regular Rate, Rhythm, No Edema, No JVD GI/Abdominal: Soft, Non-Tender, No Distention (Female) Exam: Deferred Rectal (Female) Exam: Deferred Extremities: Other (R sided weakness. She is able to move fingers of both hands. She is able to wiggle her toes bilaterally. Unable to lift R leg/arm off body. No pronator drift on L arm/leg.) Neurological: Alert, CN II-XII Intact, Slow to Respond, Other (R sided weakness. She is able to move fingers of both hands. She is able to wiggle her toes bilaterally. Unable to lift R leg/arm off body. No pronator drift on L arm/leg.) Psychiatric: Normal Affect, Normal Mood Skin Exam: Warm, Dry #1 Interpretation Rhythm: NSR [place]: Normal P-Wave: Present QRS: Normal ST-T: Normal QT: Normal Course - Vital Signs Last Recorded V/S: Last Vital Signs Temp 36.8 C 11/27/20 15:16 Pulse 87 11/27/20 17:57 Resp 14 11/27/20 17:57 BP 147/68 H 11/27/20 17:57 Pulse Ox 96 11/27/20 17:57 - Orders/Labs/Meds Orders: Active Orders 24 hr Category Date Time Status VALPROIC ACID [REF] Routine Lab 11/27/20 15:48 Received Peripheral IV Insertion Adult [OM.PC] Routine Oth 11/27/20 15:27 Ordered Labs: Laboratory Tests 11/27/20 11/27/20 11/27/20 Range/Units 15:48 15:48 15:48 WBC 10.7 H (4.0-10.0) x10^3/uL RBC 4.16 (4.00-5.50) x10^6/uL Hgb 13.6 D (12.0-16.0) g/dL Hct 41.3 (33.0-47.0) % MCV 99.3 H (78.0-93.0) fL MCH 32.7 H (26.0-32.0) pg MCHC 32.9 (32.0-36.0) g/dL RDW Coeff of Olaf 15.0 (10.0-15.0) % Plt Count 68 L D (130-400) x10^3/uL Add Manual Diff Yes Neutrophils % (Manual) 39 L (50-80) % Lymphocytes % (Manual) 52 H (25-50) % Monocytes % (Manual) 9 (2-11) % Platelet Estimate Adequate Clumped Platelets Few H PT 10.4 (9.9-12.5) SEC INR 0.9 L (2.0-3.5) APTT (25.6-32.8) SEC Sodium 138 (136-145) mmol/L Potassium 5.0 (3.5-5.1) mmol/L Chloride 99 (98-107) mmol/L Carbon Dioxide 28 (21-32) mmol/L Anion Gap 16.0 H (5-15) mmol/L BUN 10 (7-18) mg/dL Creatinine 0.9 (0.55-1.02) mg/dL Est Cr Clr Drug Dosing TNP Estimated GFR (MDRD) > 60 Glucose 111 H (74-106) mg/dL Calcium 8.8 (8.5-10.1) mg/dL Corrected Calcium 9.84 (8.5-10.1) mg/dL Total Bilirubin 0.4 (0.2-1.0) mg/dL AST 16 (15-37) U/L ALT 11 L (14-59) U/L Alkaline Phosphatase 70 (46-116) U/L Troponin I < 0.017 (<=0.056) ng/mL C-Reactive Protein < 0.2 (<=0.9) mg/dL Total Protein 6.6 (6.4-8.2) g/dL Albumin 2.7 L (3.4-5.0) g/dL Globulin 3.9 Albumin/Globulin Ratio 0.69 TSH, Ultra Sensitive 1.595 (0.358-3.74) uIU/mL 11/27/20 Range/Units 15:48 WBC (4.0-10.0) x10^3/uL RBC (4.00-5.50) x10^6/uL Hgb (12.0-16.0) g/dL Hct (33.0-47.0) % MCV (78.0-93.0) fL MCH (26.0-32.0) pg MCHC (32.0-36.0) g/dL RDW Coeff of Olaf (10.0-15.0) % Plt Count (130-400) x10^3/uL Add Manual Diff Neutrophils % (Manual) (50-80) % Lymphocytes % (Manual) (25-50) % Monocytes % (Manual) (2-11) % Platelet Estimate Clumped Platelets PT (9.9-12.5) SEC INR (2.0-3.5) APTT 24.0 L (25.6-32.8) SEC Sodium (136-145) mmol/L Potassium (3.5-5.1) mmol/L Chloride (98-107) mmol/L Carbon Dioxide (21-32) mmol/L Anion Gap (5-15) mmol/L BUN (7-18) mg/dL Creatinine (0.55-1.02) mg/dL Est Cr Clr Drug Dosing Estimated GFR (MDRD) Glucose (74-106) mg/dL Calcium (8.5-10.1) mg/dL Corrected Calcium (8.5-10.1) mg/dL Total Bilirubin (0.2-1.0) mg/dL AST (15-37) U/L ALT (14-59) U/L Alkaline Phosphatase (46-116) U/L Troponin I (<=0.056) ng/mL C-Reactive Protein (<=0.9) mg/dL Total Protein (6.4-8.2) g/dL Albumin (3.4-5.0) g/dL Globulin Albumin/Globulin Ratio TSH, Ultra Sensitive (0.358-3.74) uIU/mL Meds: Medications Discontinued Medications Generic Name Dose Route Start Last Admin Trade Name Freq PRN Reason Stop Dose Admin Acetaminophen 1,000 mg 11/27/20 17:26 11/27/20 17:40 Tylenol Extra Strength PO 11/27/20 17:27 1,000 mg ONETIME ONE Administration Valproic Acid 1,500 mg/ Sodium 115 mls @ 100 mls/hr 11/27/20 17:22 11/27/20 17:38 Chloride IV 11/27/20 18:21 100 mls/hr ONETIME ONE Administration Sodium Chloride 10 ml 11/27/20 15:24 Saline Flush FLUSH ASDIRECTED PRN Keep Vein Open - Radiology Interpretation Free Text/Narrative:: CT brain without contrast negative for acute pathology. Chronic changes were noted. Please see report. Images pushed to [facility]. - Re-Assessments/Exams Free Text/Narrative Re-Assessment/Exam: Pt. was observed and her medical record from [facility] indicated that her valporate level on 10/31/2020 was borderline therapeutic at 55. No obvious cause for lowered seizure threshold was found. Labs, EKG were all WNL. She had very small WBCs in urine, and denied any dysuria. No fever or chills. Denies any abdominal pain. Discussed case with Dr. Navarro, neurologist at [facility]. She advised loading the patient with IV depakote tonight and increasing her dosage of depakote orally to 1500mg BID. Valporate level was also ordered today, but this is a sendout lab. We will see to it that this document and her labs are forwarded to her [facility]. Departure - Departure Time of Disposition: 19:15 Disposition: DC/Tfer to [facility] Clinical Impression: Seizure - Discharge Information Instructions: Seizure, Adult, [id number] Referrals: Esther Hackett DO [Primary Care Provider] - Forms: ED Department Discharge Additional Instructions: Increase depakote Depakote 500mg 3 tabs twice daily Continue with other medications at this time Recheck in clinic in 2 weeks Pt. may exhibit some continued seizure activity for the next few days until her depakote level in her blood has increased. Return to ER if she is having seizures that does not resolve in 15 minutes Sepsis Event Note (ED) - Evaluation Sepsis Screening Result: No Definite Risk - Focused Exam Vital Signs: Vital Signs Temp Pulse Resp BP Pulse Ox 11/27/20 17:57 87 14 147/68 H 96 11/27/20 16:28 82 16 138/85 97 11/27/20 15:16 36.8 C 84 18 128/61 97 - Problem List Review Problem List Initiated/Reviewed/Updated: Yes - My Orders Last 24 Hours: My Active Orders 11/27/20 15:27 Peripheral IV Insertion Adult [OM.PC] Routine 11/27/20 15:48 VALPROIC ACID [REF] Routine - Assessment/Plan Last 24 Hours: My Active Orders 11/27/20 15:27 Peripheral IV Insertion Adult [OM.PC] Routine 11/27/20 15:48 VALPROIC ACID [REF] Routine Plan: Increase depakote Depakote 500mg 3 tabs twice daily Continue with other medications at this time Recheck in clinic in 2 weeks Pt. may exhibit some continued seizure activity for the next few days until her depakote level in her blood has increased. Return to ER if she is having seizures that does not resolve in 15 minutes
[2020-11-27 16:28] LABS: CHLORIDE,CL 99 mmol/L (98-107); SODIUM,NA 138 mmol/L (136-145)
--- NOTE | 2020-11-27 16:50 | CT ---
[id number] CT/CT Head WO IV EXAM: NONCONTRAST HEAD CT INDICATION: 4 EPISODES OF UNRESPONSIVENESS, HISTORY OF CVA, COMPARISON: May 13, 2017. DISCUSSION: A left middle cerebral artery territory infarct has evolved and now has a chronic appearance. Stable changes of previous left craniotomy. Stable mild generalized atrophy and chronic small vessel ischemic changes. No acute hemorrhage, mass effect, midline shift or hydrocephalus. No acute infarct is identified. Mild right maxillary sinus mucosal thickening is similar to the prior study. No acute hemorrhage, mass effect, midline shift or hydrocephalus. IMPRESSION: 1. No acute findings. Jordan Maya MD 11/27/20 [id number] Thank you for allowing us to participate in the care of your patient.
[2020-11-27] MEDS ORDERED: Valproate Sodium 1,500 MG in Sodium Chloride 0.9% 100 ML IV ONE (17:22)
[2020-11-27] MEDS ORDERED: Acetaminophen 500 MG Tab PO ONE (17:26)
[2020-11-27 17:58] VITALS: BP 147/68; PULSE 87
== END 2020-11-27 19:05 ==
LOC: VM.ED 15:16
DX: G40.909 Epilepsy, unspecified, not intractable, without status epilepticus (principal); E78.00 Pure hypercholesterolemia, unspecified; I12.9 Hypertensive chronic kidney disease with stage 1 through stage 4 chronic kidney disease, or unspecified chronic kidney disease; N18.9 Chronic kidney disease, unspecified; E11.42 Type 2 diabetes mellitus with diabetic polyneuropathy; M19.90 Unspecified osteoarthritis, unspecified site; E11.22 Type 2 diabetes mellitus with diabetic chronic kidney disease; E66.9 Obesity, unspecified; Z86.73 Personal history of transient ischemic attack (TIA), and cerebral infarction without residual deficits; Z79.82 Long term (current) use of aspirin; Z79.4 Long term (current) use of insulin; Z88.2 Allergy status to sulfonamides; Z88.5 Allergy status to narcotic agent
CPT/HCPCS: 70450; 80053; 80164; 84443; 84484; 85025; 85610; 85730; 86140; 93005; 93010; 96365; 99284; 99285-25; A9270-GY; J3490

== ENCOUNTER 2020-12-02 15:52 | Emergency (ER) | payer MEDICARE, MEDICAID ==
[2020-12-02] MEDS ORDERED: Sodium Chloride 0.9% 10 ML Syringe FLUSH PRN (16:03)
--- NOTE | 2020-12-02 16:44 | EDM.PDOC ---
ED HPI GENERAL MEDICAL PROBLEM - General Chief Complaint: Neuro Symptoms/Deficits Time Seen by Provider: 12/02/20 15:52 Source of Information: Reports: Family, Prison Records History Limitations: Reports: No Limitations - History of Present Illness INITIAL COMMENTS - FREE TEXT/NARRATIVE: Pt. presents to ER via EMS from [facility] with increased seizure activity. Pt. was seen in ER on 11/27/2020 for the same. Pt. 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 She currently is a patient at [facility] due to severe subsequent neuro deficits. Pt. had labs, CT during her last visit. Her valporate level was found to be borderline therapeutic. She was loaded with valporic IV in ER (1500mg) and her dose was increased to 1500mg BID at the suggestion of Dr. Navarro. Urine cultures were negative, but she is currently being treated for a UTI. She was discharged back to the [facility] with plan for outpatient follow-up with Dr. Arce. Family states that the patient has been continuing to have seizures several times a day despite the increase in medication. She is scheduled for an MRI next week and an EEG in December. Dr. Hackett was consulted today who did contact Dr. Arce, who advised the pt. be initially worked up in ER and likely transferred to [place]. EMS states that she did have one seizure while she was being transported to ER. Pt. does have a history of R sided weakness, dysarthria, and expressive aphasia. This is unchanged today from previous. Onset: Today Onset Date: 12/02/20 Location: Reports: Generalized - Related Data Allergies Allergy/AdvReac Type Severity Reaction Status Date / Time Sulfa (Sulfonamide Allergy Rash Verified 12/02/20 16:03 Antibiotics) tramadol Allergy Other Verified 12/02/20 16:03 Home Meds: Home Meds Citalopram [Celexa] 20 mg PO DAILY 08/31/16 [History] amLODIPine Besylate [Amlodipine Besylate] 10 mg PO DAILY 08/31/16 [History] metFORMIN [Glucophage] 1,000 mg PO BID 09/01/16 [History] DULoxetine [Cymbalta] 60 mg PO DAILY 04/18/17 [History] atorvaSTATin [Lipitor] 80 mg PO BEDTIME 04/18/17 [History] carvediloL [Coreg] 12.5 mg PO BID 04/18/17 [History] traZODone 50 mg PO BEDTIME 04/18/17 [History] ALPRAZolam [Xanax] 0.5 mg PO DAILY 03/10/19 [History] ARIPiprazole [Abilify] 15 mg PO DAILY 03/10/19 [History] Acetaminophen [Tylenol] 650 mg PO QID 03/10/19 [History] Baclofen 5 mg PO BID 03/10/19 [History] Lacosamide [Vimpat] 1 tab PO BID 03/10/19 [History] Levothyroxine Sodium [Levo-T] 1 tab PO DAILY 03/10/19 [History] Nystatin 1 applic TOP BID PRN 03/10/19 [History] bisacodyL [Dulcolax] 1 tab PO DAILY PRN 03/10/19 [History] Acetaminophen [Tylenol] 650 mg PO Q4H PRN tablet 03/11/19 [Rx] Aspirin 81 mg PO DAILY 11/27/20 [History] Divalproex Sodium [Depakote ER] 1,000 mg PO BID 11/27/20 [History] Exenatide Microspheres [Bydureon Pen] 2 mg SQ Q7D 11/27/20 [History] Famotidine 20 mg PO DAILY 11/27/20 [History] Insulin Detemir [Levemir] 12 unit SUBCUT DAILY 11/27/20 [History] Loperamide HCl [Imodium A-D] 2 mg PO ASDIRECTED PRN 11/27/20 [History] Mag Hydrox/Aluminum Hyd/Simeth [Mylanta Maximum Strength Liq] 30 ml PO Q6H PRN 11/27/20 [History] Naproxen Sodium [Naprelan] 375 mg PO BID PRN 11/27/20 [History] Sennosides/Docusate Sodium [Senna Plus 8.6-50 mg Tablet] 1 each PO BID 11/27/20 [History] lisinopriL [Lisinopril] 5 mg PO DAILY 11/27/20 [History] Past Medical History HEENT History: Reports: Allergic Rhinitis, Other (See Below) Other HEENT History: cva, epilepsy, dyspepsia, right side hemiplegia and hemiparesis, Cardiovascular History: Reports: High Cholesterol, Hypertension Respiratory History: Reports: Sleep Apnea Genitourinary History: Reports: Other (See Below) Other Genitourinary History: CKD, proteinuria [employer] History: Reports: Musculoskeletal History: Reports: Arthritis, Osteoarthritis, Other (See Below) Other Musculoskeletal History: Both knees and hips Neurological History: Reports: CVA, Neuropathy, Peripheral, Seizure Psychiatric History: Reports: Anxiety, Depression, Other (See Below) Other Psychiatric History: insomnia Endocrine/Metabolic History: Reports: Diabetes, Type II, Obesity/BMI 30+ - Past Surgical History Female Surgical History: Reports: Hysterectomy Neurological Surgical History: Reports: Other (See Below) Other Neurological Surgeries/Procedures: craniotomy Social & Family History - Family History Family Medical History: No Pertinent Family History - Tobacco Use Tobacco Use Status *Q: Unknown Ever Used Tobacco - Caffeine Use Caffeine Use: Reports: None ED ROS GENERAL - Review of Systems Review Of Systems: See Below Constitutional: Reports: No Symptoms. Denies: Fever, Chills HEENT: Reports: No Symptoms Respiratory: Reports: No Symptoms Cardiovascular: Reports: No Symptoms Endocrine: Reports: No Symptoms GI/Abdominal: Reports: No Symptoms : Reports: No Symptoms Musculoskeletal: Reports: No Symptoms Skin: Reports: No Symptoms Neurological: Reports: Other (Seizures, chronic neuro deficits. No recent head trauma. ) Psychiatric: Reports: No Symptoms Hematologic/Lymphatic: Reports: No Symptoms Immunologic: Reports: No Symptoms ED EXAM, GENERAL - Physical Exam Exam: See Below Exam Limited By: No Limitations General Appearance: Alert, WD/WN, No Apparent Distress Eye Exam: Bilateral Eye: EOMI, PERRL Head: Atraumatic, Normocephalic Respiratory/Chest: No Respiratory Distress, Lungs Clear, Normal Breath Sounds, No Accessory Muscle Use, Chest Non-Tender Cardiovascular: Normal Peripheral Pulses, Regular Rate, Rhythm, No Edema, No JVD, No Murmur Peripheral Pulses: 4+: Radial (L) GI/Abdominal: Soft, No Organomegaly, No Distention, No Mass (Female) Exam: Deferred Rectal (Female) Exam: Deferred Extremities: Normal Inspection, No Pedal Edema, Other (Chronically complains of R upper extremity/arm pain.) Neurological: Alert, CN II-XII Intact, Normal Reflexes, No Motor/Sensory Deficits, Other (Moves both upper and lower extremities.) Psychiatric: Normal Affect, Normal Mood Skin Exam: Warm, Dry, Intact, Normal Color, No Rash Lymphatic: No Adenopathy Course - Vital Signs Last Recorded V/S: Last Vital Signs Temp 36.4 C 12/02/20 15:52 Pulse 87 12/02/20 17:13 Resp 18 12/02/20 17:13 BP 152/74 H 12/02/20 17:13 Pulse Ox 95 12/02/20 17:13 - Orders/Labs/Meds Orders: Active Orders 24 hr Category Date Time Status CULTURE BLOOD [BC] Stat Lab 12/02/20 17:06 Ordered CULTURE BLOOD [BC] Stat Lab 12/02/20 17:06 Ordered Sodium Chloride 0.9% [Saline Flush] Med 12/02/20 16:03 Active 10 ml FLUSH ASDIRECTED PRN Blood Culture x2 Reflex Set [OM.PC] Stat Oth 12/02/20 17:06 Ordered Peripheral IV Insertion Adult [OM.PC] Routine Oth 12/02/20 16:04 Ordered Medication Orders Sodium Chloride (Saline Flush) 10 ml FLUSH ASDIRECTED PRN PRN Reason: Keep Vein Open Labs: Laboratory Tests 12/02/20 12/02/20 12/02/20 Range/Units 16:22 16:22 16:22 WBC 12.5 H (4.0-10.0) x10^3/uL RBC 3.86 L (4.00-5.50) x10^6/uL Hgb 12.6 (12.0-16.0) g/dL Hct 38.3 (33.0-47.0) % MCV 99.2 H (78.0-93.0) fL MCH 32.6 H (26.0-32.0) pg MCHC 32.9 (32.0-36.0) g/dL RDW Coeff of Olaf 14.5 (10.0-15.0) % Plt Count 248 D (130-400) x10^3/uL Neut % (Auto) 55.9 (50.0-80.0) % Lymph % (Auto) 35.4 (25.0-50.0) % Monona % (Auto) 7.4 (2.0-11.0) % Eos % (Auto) 1.1 (0.0-4.0) % Baso % (Auto) 0.2 (0.2-1.2) % PT 9.9 (9.9-12.5) SEC INR 0.9 L (2.0-3.5) APTT (25.6-32.8) SEC Sodium 138 (136-145) mmol/L Potassium 3.7 (3.5-5.1) mmol/L Chloride 101 (98-107) mmol/L Carbon Dioxide 25 (21-32) mmol/L Anion Gap 15.7 H (5-15) mmol/L BUN 11 (7-18) mg/dL Creatinine 0.9 (0.55-1.02) mg/dL Est Cr Clr Drug Dosing TNP Estimated GFR (MDRD) > 60 Glucose 135 H (74-106) mg/dL Lactic Acid (0.4-2.0) mmol/L Calcium 8.4 L (8.5-10.1) mg/dL Corrected Calcium 9.60 (8.5-10.1) mg/dL Magnesium 1.7 L (1.8-2.4) mg/dL Total Bilirubin 0.2 (0.2-1.0) mg/dL AST 7 L (15-37) U/L ALT 10 L (14-59) U/L Alkaline Phosphatase 58 (46-116) U/L Total Protein 6.0 L (6.4-8.2) g/dL Albumin 2.5 L (3.4-5.0) g/dL Globulin 3.5 Albumin/Globulin Ratio 0.71 TSH, Ultra Sensitive 1.146 (0.358-3.74) uIU/mL 12/02/20 12/02/20 Range/Units 16:22 16:22 WBC (4.0-10.0) x10^3/uL RBC (4.00-5.50) x10^6/uL Hgb (12.0-16.0) g/dL Hct (33.0-47.0) % MCV (78.0-93.0) fL MCH (26.0-32.0) pg MCHC (32.0-36.0) g/dL RDW Coeff of Olaf (10.0-15.0) % Plt Count (130-400) x10^3/uL Neut % (Auto) (50.0-80.0) % Lymph % (Auto) (25.0-50.0) % Monona % (Auto) (2.0-11.0) % Eos % (Auto) (0.0-4.0) % Baso % (Auto) (0.2-1.2) % PT (9.9-12.5) SEC INR (2.0-3.5) APTT 23.9 L (25.6-32.8) SEC Sodium (136-145) mmol/L Potassium (3.5-5.1) mmol/L Chloride (98-107) mmol/L Carbon Dioxide (21-32) mmol/L Anion Gap (5-15) mmol/L BUN (7-18) mg/dL Creatinine (0.55-1.02) mg/dL Est Cr Clr Drug Dosing Estimated GFR (MDRD) Glucose (74-106) mg/dL Lactic Acid 6.3 H* (0.4-2.0) mmol/L Calcium (8.5-10.1) mg/dL Corrected Calcium (8.5-10.1) mg/dL Magnesium (1.8-2.4) mg/dL Total Bilirubin (0.2-1.0) mg/dL AST (15-37) U/L ALT (14-59) U/L Alkaline Phosphatase (46-116) U/L Total Protein (6.4-8.2) g/dL Albumin (3.4-5.0) g/dL Globulin Albumin/Globulin Ratio TSH, Ultra Sensitive (0.358-3.74) uIU/mL Meds: Medications Generic Name Dose Route Start Last Admin Trade Name Freq PRN Reason Stop Dose Admin Sodium Chloride 10 ml 12/02/20 16:03 Saline Flush FLUSH ASDIRECTED PRN Keep Vein Open Discontinued Medications Generic Name Dose Route Start Last Admin Trade Name Freq PRN Reason Stop Dose Admin Diazepam 5 mg 12/02/20 16:46 12/02/20 16:57 Valium IVPUSH 12/02/20 16:47 5 mg STAT ONE Administration Diazepam 5 mg 12/02/20 17:28 Valium IVPUSH 12/02/20 17:29 STAT ONE - Radiology Interpretation Free Text/Narrative:: CT brain negative for acute pathology. - Re-Assessments/Exams Free Text/Narrative Re-Assessment/Exam: 12/02/20 17:04 Pt. experienced a seizure lasting approx. 90 seconds, followed by a brief postictal period. This was similar to the seizures she experienced when she was in the ER on 11/28. 12/02/20 17:31Pt. had another seizure of similar appearance. Pt. was given two 5 mg doses of valium IV. She was somewhat more somnolent, but arousable, maintaining her own airway. Departure - Departure Time of Disposition: 17:34 Disposition: DC/Tfer to [facility] 02 Clinical Impression: Seizure, Increasing frequency of seizure activity - Discharge Information Referrals: Esther Hackett DO [Primary Care Provider] - Forms: ED Department Discharge, Interfacility Transfer [facility] Sepsis Event Note (ED) - Evaluation Sepsis Screening Result: No Definite Risk - Focused Exam Vital Signs: Vital Signs Temp Pulse Resp BP Pulse Ox 12/02/20 17:13 87 18 152/74 H 95 12/02/20 15:52 36.4 C 88 18 140/74 98 - My Orders Last 24 Hours: My Active Orders 12/02/20 16:03 Sodium Chloride 0.9% [Saline Flush] 10 ml FLUSH ASDIRECTED PRN 12/02/20 16:04 Peripheral IV Insertion Adult [OM.PC] Routine 12/02/20 17:06 CULTURE BLOOD [BC] Stat CULTURE BLOOD [BC] Stat Blood Culture x2 Reflex Set [OM.PC] Stat - Assessment/Plan Last 24 Hours: My Active Orders 12/02/20 16:03 Sodium Chloride 0.9% [Saline Flush] 10 ml FLUSH ASDIRECTED PRN 12/02/20 16:04 Peripheral IV Insertion Adult [OM.PC] Routine 12/02/20 17:06 CULTURE BLOOD [BC] Stat CULTURE BLOOD [BC] Stat Blood Culture x2 Reflex Set [OM.PC] Stat Plan: Pt. will be transferred to [facility] ER. Discussed case with Dr. Wynne who accepts patient in transfer. he feels we can hold off on blood cultures at this time. She is afebrile and non-toxic appearing. Pt. will be transported via [facility] ground ambulance. IV benzodiazepines as needed for continued seizure activity. All questions were answered.
--- NOTE | 2020-12-02 16:49 | CT ---
[id number] CT/CT Head WO IV EXAM: NONCONTRAST HEAD CT INDICATION: SEIZURE ACTIVITY. COMPARISON: 11/27/2020. DISCUSSION: Stable area of encephalomalacia involving the left MCA territory consistent with old infarct. Stable changes of previous left craniotomy. Stable mild generalized atrophy and chronic small vessel ischemic changes. No acute hemorrhage, mass effect, midline shift or hydrocephalus. No acute infarct is identified. No acute hemorrhage, mass effect, midline shift or hydrocephalus. No evidence of aggressive sinusitis. IMPRESSION: 1. No acute findings. Cristobal Nails DO 12/02/20 2098 Thank you for allowing us to participate in the care of your patient.
[2020-12-02 16:57] LABS: ANION GAP 15.7 mmol/L (5-15); CHLORIDE,CL 101 mmol/L (98-107); SODIUM,NA 138 mmol/L (136-145)
[2020-12-02 17:14] VITALS: BP 152/74; PULSE 87
== END 2020-12-02 18:22 | disposition short-term general hospital (02) ==
LOC: VM.ED 15:52
DX: G40.909 Epilepsy, unspecified, not intractable, without status epilepticus (principal); E78.00 Pure hypercholesterolemia, unspecified; I12.9 Hypertensive chronic kidney disease with stage 1 through stage 4 chronic kidney disease, or unspecified chronic kidney disease; N18.9 Chronic kidney disease, unspecified; M19.90 Unspecified osteoarthritis, unspecified site; E11.42 Type 2 diabetes mellitus with diabetic polyneuropathy; E11.22 Type 2 diabetes mellitus with diabetic chronic kidney disease; E66.9 Obesity, unspecified; Z79.82 Long term (current) use of aspirin; Z86.73 Personal history of transient ischemic attack (TIA), and cerebral infarction without residual deficits; Z88.2 Allergy status to sulfonamides; Z88.5 Allergy status to narcotic agent; Z79.84 Long term (current) use of oral hypoglycemic drugs; Z79.899 Other long term (current) drug therapy
CPT/HCPCS: 36415; 70450; 80053; 83605; 83735; 84443; 85025; 85610; 85730; 96374; 96376; 99284; 99285-25; J3360

== ENCOUNTER 2022-05-29 21:28 | Inpatient (IN) | payer MEDICARE, MEDICAID ==
[2022-05-29] MEDS ORDERED: Sodium Chloride 0.9% 10 ML Syringe FLUSH PRN (21:33)
[2022-05-29] MEDS ORDERED: Sodium Chloride 0.9% 1,000 ML IV SCH (21:45)
[2022-05-29 22:03] LABS: CHLORIDE,CL 98 mmol/L (98-107); SODIUM,NA 135 mmol/L (136-145)
[2022-05-29 22:04] LABS: ANION GAP 19.1 mmol/L (5-15); ESTIMATED GFR 54 mL/min (>=60)
[2022-05-29] MEDS: cefTRIAXone 2 GM Vial IVPUSH SCH (23:12)
[2022-05-30] MEDS: Sodium Chloride 0.9% 1,000 ML IV SCH ×2 (03:15→20:33)
[2022-05-30] MEDS: cefTRIAXone 2 GM Vial IVPUSH SCH (08:02)
[2022-05-30] MEDS ORDERED: Bisacodyl 5 MG Tab PO PRN (08:20)
[2022-05-30] MEDS ORDERED: Acetaminophen/HYDROcodone 325-10 MG Tab PO PRN (08:20)
[2022-05-30] MEDS ORDERED: Calcium Carbonate 750 MG Tab.Chew PO PRN (08:20)
[2022-05-30] MEDS ORDERED: [UNRECOGNIZED DRUG - OTHER] SQ SCH (08:30)
[2022-05-30] MEDS ORDERED: EXENATIDE MICROSPHERES 2 MG/0.65 ML SQ SCH (08:30)
[2022-05-30 08:50] LABS: ANION GAP 16.6 mmol/L (5-15)
[2022-05-30] MEDS ORDERED: Aspirin 81 MG Tab.Chew PO SCH (09:00)
[2022-05-30] MEDS: ARIPiprazole 5 MG Tab PO SCH (09:15)
[2022-05-30] MEDS: DULoxetine 60 MG Cap PO SCH (09:16)
[2022-05-30] MEDS: ALPRAZolam 0.25 MG Tab PO SCH (09:16)
[2022-05-30] MEDS: Gabapentin 300 MG Cap PO SCH ×2 (09:20→20:44)
[2022-05-30] MEDS: Lisinopril 5 MG Tab PO SCH (09:20)
[2022-05-30] MEDS: Baclofen 10 MG Tab PO SCH ×2 (09:21→20:45)
[2022-05-30] MEDS: amLODIPine 5 MG Tab PO SCH (09:22)
[2022-05-30] MEDS: Levothyroxine 25 MCG Tab PO SCH (09:22)
[2022-05-30] MEDS: Carvedilol 12.5 MG Tab PO SCH ×2 (09:22→20:43)
[2022-05-30] MEDS: metFORMIN 500 MG Tab PO SCH ×2 (09:23→20:43)
[2022-05-30] MEDS: Acetaminophen 500 MG Tab PO SCH ×2 (09:23→20:47)
[2022-05-30] MEDS: Citalopram 20 MG Tab PO SCH (09:23)
[2022-05-30] MEDS: levETIRAcetam 500 MG Tab PO SCH ×2 (09:23→20:44)
[2022-05-30] MEDS: atorvaSTATin 40 MG Tab PO SCH (20:42)
[2022-05-30] MEDS: traZODone 50 MG Tab PO SCH (20:45)
[2022-05-30] MEDS: Insulin Glarg,Human.Rec.Analog 100 Unit/ML SUBCUT SCH (20:48)
[2022-05-30] MEDS: Acetaminophen/HYDROcodone 325-10 MG Tab PO SCH (20:53)
[2022-05-30] MEDS: VIMPAT 100 MG PO SCH (20:54)
[2022-05-31] MEDS: Sodium Chloride 0.9% 1,000 ML IV SCH (03:54)
[2022-05-31 07:23] LABS: ANION GAP 15.6 mmol/L (5-15)
[2022-05-31] MEDS: Lactobacillus Rhamnosus GG (Probiotic) Cap PO SCH (08:58)
[2022-05-31] MEDS: Aspirin 81 MG Tab.Chew PO SCH (08:58)
[2022-05-31] MEDS: levETIRAcetam 500 MG Tab PO SCH ×2 (08:58→20:07)
[2022-05-31] MEDS: Acetaminophen 500 MG Tab PO SCH ×2 (08:58→20:08)
[2022-05-31] MEDS: DULoxetine 60 MG Cap PO SCH (09:00)
[2022-05-31] MEDS: Citalopram 20 MG Tab PO SCH (09:00)
[2022-05-31] MEDS: metFORMIN 500 MG Tab PO SCH ×2 (09:00→20:06)
[2022-05-31] MEDS: Gabapentin 300 MG Cap PO SCH ×2 (09:00→20:05)
[2022-05-31] MEDS: ARIPiprazole 5 MG Tab PO SCH (09:00)
[2022-05-31] MEDS: Baclofen 10 MG Tab PO SCH ×2 (09:01→20:07)
[2022-05-31] MEDS: ALPRAZolam 0.25 MG Tab PO SCH (09:01)
[2022-05-31] MEDS: Levothyroxine 25 MCG Tab PO SCH (09:05)
[2022-05-31] MEDS: Carvedilol 12.5 MG Tab PO SCH ×2 (09:05→20:06)
[2022-05-31] MEDS: cefTRIAXone 2 GM Vial IVPUSH SCH (09:07)
[2022-05-31] MEDS: amLODIPine 5 MG Tab PO SCH (09:07)
[2022-05-31] MEDS: Lisinopril 5 MG Tab PO SCH (09:07)
[2022-05-31] MEDS: VIMPAT 100 MG PO SCH ×2 (09:13→20:09)
[2022-05-31] MEDS ORDERED: LORazepam 2 MG/ML SDV IM ONE (12:43)
[2022-05-31] MEDS ORDERED: Flumazenil 0.1 MG/ML 5 ML MDV IVPUSH PRN (12:43)
[2022-05-31] MEDS ORDERED: LORazepam 2 MG/ML SDV IVPUSH ONE (12:56)
[2022-05-31] MEDS ORDERED: ALPRAZolam 0.25 MG Tab PO PRN (13:06)
[2022-05-31] MEDS: atorvaSTATin 40 MG Tab PO SCH (20:07)
[2022-05-31] MEDS: traZODone 50 MG Tab PO SCH (20:07)
[2022-05-31] MEDS: Acetaminophen/HYDROcodone 325-10 MG Tab PO SCH (20:08)
[2022-05-31] MEDS: Insulin Glarg,Human.Rec.Analog 100 Unit/ML SUBCUT SCH (20:11)
[2022-06-01 06:44] VITALS: PULSE 81
[2022-06-01] MEDS: cefTRIAXone 2 GM Vial IVPUSH SCH (08:39)
[2022-06-01] MEDS: Acetaminophen 500 MG Tab PO SCH (08:39)
[2022-06-01] MEDS: ARIPiprazole 5 MG Tab PO SCH (08:41)
[2022-06-01] MEDS: Citalopram 20 MG Tab PO SCH (08:41)
[2022-06-01] MEDS: Gabapentin 300 MG Cap PO SCH (08:41)
[2022-06-01] MEDS: ALPRAZolam 0.25 MG Tab PO SCH (08:41)
[2022-06-01] MEDS: Lactobacillus Rhamnosus GG (Probiotic) Cap PO SCH (08:41)
[2022-06-01] MEDS: Lisinopril 5 MG Tab PO SCH (08:42)
[2022-06-01] MEDS: levETIRAcetam 500 MG Tab PO SCH (08:42)
[2022-06-01] MEDS: Levothyroxine 25 MCG Tab PO SCH (08:42)
[2022-06-01] MEDS: Aspirin 81 MG Tab.Chew PO SCH (08:43)
[2022-06-01] MEDS: Baclofen 10 MG Tab PO SCH (08:43)
[2022-06-01] MEDS: metFORMIN 500 MG Tab PO SCH (08:44)
[2022-06-01] MEDS: DULoxetine 60 MG Cap PO SCH (08:44)
[2022-06-01] MEDS: amLODIPine 5 MG Tab PO SCH (08:44)
[2022-06-01] MEDS: Carvedilol 12.5 MG Tab PO SCH (08:44)
[2022-06-01 08:45] VITALS: BP 176/71
[2022-06-01] MEDS: VIMPAT 100 MG PO SCH (08:57)
[2022-06-01] MEDS ORDERED: Enoxaparin 40 MG/0.4 ML Syringe SUBCUT SCH (09:45)
== END 2022-06-01 10:35 | DRG 871 ==
LOC: VM.ED 21:28 → VM.MS 23:33 → UNDOADMIN 23:33
PROVIDERS: ADMIT Nurse Practitioner Family; ATTEND Internal Medicine
DX: A41.9 Sepsis, unspecified organism (principal); N39.0 Urinary tract infection, site not specified; R40.4 Transient alteration of awareness; A41.59 Other Gram-negative sepsis; G93.41 Metabolic encephalopathy; I69.351 Hemiplegia and hemiparesis following cerebral infarction affecting right dominant side; G40.909 Epilepsy, unspecified, not intractable, without status epilepticus; E66.9 Obesity, unspecified; G47.33 Obstructive sleep apnea (adult) (pediatric); M54.9 Dorsalgia, unspecified; F41.9 Anxiety disorder, unspecified; F32.A Depression, unspecified; Z20.822 Contact with and (suspected) exposure to COVID-19; M19.90 Unspecified osteoarthritis, unspecified site; E78.00 Pure hypercholesterolemia, unspecified; E11.22 Type 2 diabetes mellitus with diabetic chronic kidney disease; I12.9 Hypertensive chronic kidney disease with stage 1 through stage 4 chronic kidney disease, or unspecified chronic kidney disease; N18.9 Chronic kidney disease, unspecified; G47.30 Sleep apnea, unspecified; E11.42 Type 2 diabetes mellitus with diabetic polyneuropathy; Z90.710 Acquired absence of both cervix and uterus; Z88.2 Allergy status to sulfonamides; Z88.6 Allergy status to analgesic agent; Z79.890 Hormone replacement therapy; Z79.899 Other long term (current) drug therapy; Z88.8 Allergy status to other drugs, medicaments and biological substances; Z79.82 Long term (current) use of aspirin; Z79.4 Long term (current) use of insulin
CPT/HCPCS: 36415; 70450; 71045; 72131; 80053; 81001; 81003; 82947; 83605; 83735; 84443; 84484; 85025; 85379; 85610; 87040; 87086; 87088; 87186; 93005; 93010; 96361; 96365; 96375; 99284; 99285-25; A9270-GY; J0696; J1650; J1815-GY; J3370; J3490; J7030; J7050; U0002

== ENCOUNTER 2025-01-28 01:13 | Emergency (ER) | payer MEDICARE, MEDICAID ==
[2025-01-28] MEDS: Acetaminophen/HYDROcodone 325-10 MG Tab PO ONE (01:55)
[2025-01-28 02:32] VITALS: BP 153/54; PULSE 50
== END 2025-01-28 02:47 ==
LOC: VM.ED 01:13
DX: S82.831A Other fracture of upper and lower end of right fibula, initial encounter for closed fracture (principal); E78.00 Pure hypercholesterolemia, unspecified; I12.9 Hypertensive chronic kidney disease with stage 1 through stage 4 chronic kidney disease, or unspecified chronic kidney disease; N18.9 Chronic kidney disease, unspecified; M19.90 Unspecified osteoarthritis, unspecified site; E11.9 Type 2 diabetes mellitus without complications; Z90.710 Acquired absence of both cervix and uterus; Z88.2 Allergy status to sulfonamides; Z88.5 Allergy status to narcotic agent; Z79.4 Long term (current) use of insulin; Z79.84 Long term (current) use of oral hypoglycemic drugs; Z79.82 Long term (current) use of aspirin; Z79.890 Hormone replacement therapy; Z79.899 Other long term (current) drug therapy; W01.0XXA Fall on same level from slipping, tripping and stumbling without subsequent striking against object, initial encounter
CPT/HCPCS: 29515; 73600-RT; 82947; 99283; 99285-25; A9270-GY